=== PATIENT | male | born 1940 | race Two or more races ===

== ENCOUNTER 2018-02-04 03:51 | Inpatient (IN) | payer MEDICARE, MEDICAID ==
[~2018-02-04] VITALS: Ht 167.6 cm; Wt 111.1 kg
[2018-02-04] MEDS ORDERED: ACETAMINOPHEN 325MG TABLET PO STA (04:16)
[2018-02-04] MEDS ORDERED: SODIUM CHLORIDE 0.9% 1000ML BAG (SEPSIS BOLUS) IV ONE (04:30)
[2018-02-04 04:51] LABS: HEMATOCRIT. 47.9 % (42.0-52.0); MEAN CORPUSCULAR HEMOGLOBIN 31.6 pg (28.0-32.0); MEAN CORPUSCULAR VOLUME 94.7 fL (80.0-94.0); MEAN PLATELET VOLUME 9.4 fl (7.4-10.4); PLATELET 184 x1000/uL (130-400); RED BLOOD CELL COUNT 5.06 mill/uL (4.7-6.1); RED CELL DISTRIBUTION WIDTH 13.7 % (11.6-14.6)
[2018-02-04 04:53] LABS: CHLORIDE 102 mEq/L (98-107)
[2018-02-04 04:56] LABS: INR 1.1; PROTHROMBIN TIME 11.8 sec (9.4-11.6)
[2018-02-04 05:27] LABS: CLARITY URINE CLEAR (CLEAR); COLOR URINE YELLOW (YELLOW); KETONES URINE NEGATIVE (NEGATIVE); LEUKOCYTE ESTERASE URINE NEGATIVE (NEGATIVE); NITRITE URINE NEGATIVE (NEGATIVE); OCCULT BLOOD URINE NEGATIVE (NEGATIVE); PROTEIN URINE 2+ (NEGATIVE); SPECIFIC GRAVITY URINE 1.015 (1.005-1.030)
[2018-02-04] MEDS ORDERED: PIPERACILLIN/TAZ 3.375G PREMIX 50 ML IV ONE (05:45)
[2018-02-04] MEDS ORDERED: VANCOMYCIN 1 G PREMIX 200 ML IV ONE (05:45)
[2018-02-04 06:11] LABS: PLATELET ESTIMATE NORMAL
[2018-02-04] MEDS ORDERED: CLONIDINE 0.1MG TABLET PO PRN (09:30)
[2018-02-04] MEDS ORDERED: IPRATROPIUM/ALBUTEROL 0.5-3(2.5)MG/3ML NEB INH PRN (09:30)
[2018-02-04] MEDS ORDERED: ONDANSETRON HCL 4MG/2ML VIAL IV PRN (09:30)
[2018-02-04] MEDS ORDERED: ACETAMINOPHEN 325MG TABLET PO PRN (09:30)
[2018-02-04] MEDS ORDERED: DIPHENHYDRAMINE 50MG/ML VIAL IV PRN (09:30)
[2018-02-04] MEDS ORDERED: ENOXAPARIN 40MG/0.4ML SYR SUBCUT SCH (09:30)
[2018-02-04] MEDS ORDERED: LEVOFLOXACIN 500MG PREMIX 100 ML IV SCH (09:30)
[2018-02-04 11:00] VITALS: BP 105/49
[2018-02-04] MEDS ORDERED: ENOXAPARIN 30MG/0.3ML SYR SUBCUT SCH (11:00)
[2018-02-04 12:00] VITALS: BP 106/58
[2018-02-04] MEDS ORDERED: IPRATROPIUM/ALBUTEROL 0.5-3(2.5)MG/3ML NEB HHN SCH (12:00)
[2018-02-04] MEDS: SODIUM CHLORIDE 0.9% INJ 3ML FLUSH IVF SCH ×2 (13:42→20:59)
[2018-02-04] MEDS: LEVOFLOXACIN 500MG PREMIX 100 ML IV SCH (14:29)
[2018-02-04] MEDS ORDERED: DEXTROSE 50% WATER 50ML SYRINGE IV PRN (15:00)
[2018-02-04] MEDS ORDERED: ZOLPIDEM TARTRATE 5MG TABLET PO PRN (15:00)
[2018-02-04] MEDS ORDERED: MAGNESIUM HYDROXIDE 400MG/5ML 30ML UDC PO PRN (15:00)
[2018-02-04] MEDS ORDERED: MAGNESIUM/ALUMINUM HYDROXIDE/SIMETHICONE 30ML UDC PO PRN (15:00)
[2018-02-04] MEDS ORDERED: DILTIAZEM HCL 5MG/ML 5ML VIAL IV PRN (15:45)
[2018-02-04 16:00] VITALS: BP 104/58
[2018-02-04] MEDS: IPRATROPIUM/ALBUTEROL 0.5-3(2.5)MG/3ML NEB HHN SCH ×2 (16:47→21:30)
[2018-02-04] MEDS ORDERED: APIXABAN 2.5 MG TABLET PO SCH (17:00)
[2018-02-04] MEDS: DILTIAZEM HCL 30MG TABLET PO SCH (17:05)
[2018-02-04] MEDS: BLOOD SUGAR DIAGNOSTIC STRIP TEST SCH ×2 (17:07→20:59)
[2018-02-04] MEDS: APIXABAN 5 MG TABLET PO SCH (17:11)
[2018-02-04] MEDS: INSULIN LISPRO 100 UNITS/ML SUBCUT SCH ×2 (17:12→21:00)
[2018-02-04] MEDS ORDERED: HYDROCODONE/ACETAMINOPHEN 5/325MG TABLET PO PRN (17:30)
[2018-02-04 20:00] VITALS: BP 113/55
[2018-02-04] MEDS: GUAIFENESIN 600MG ER TABLET PO SCH (20:57)
[2018-02-04] MEDS: INSULIN GLARGINE UD 100 UNITS/ML SYR SUBCUT SCH (20:59)
[2018-02-05 00:19] VITALS: BP 98/57
[2018-02-05] MEDS: IPRATROPIUM/ALBUTEROL 0.5-3(2.5)MG/3ML NEB HHN SCH ×4 (01:54→20:49)
[2018-02-05] MEDS: DILTIAZEM HCL 30MG TABLET PO SCH ×4 (05:28→17:21)
[2018-02-05] MEDS: SODIUM CHLORIDE 0.9% INJ 3ML FLUSH IVF SCH ×3 (05:29→20:58)
[2018-02-05] MEDS: BLOOD SUGAR DIAGNOSTIC STRIP TEST SCH ×4 (05:29→20:56)
[2018-02-05 05:55] VITALS: BP 107/57
[2018-02-05] MEDS: INSULIN LISPRO 100 UNITS/ML SUBCUT SCH ×4 (06:14→20:57)
[2018-02-05 07:38] LABS: BASOPHILS % 0.2 % (0.0-2.0); EOSINOPHILS % 0.3 % (0.0-5.0); HEMOGLOBIN. 13.6 g/dL (14.0-18.0); LYMPHOCYTES % 7.8 % (20.0-50.0); MEAN CORPUSCULAR HEMOGLOBIN 31.9 pg (28.0-32.0); MEAN CORPUSCULAR VOLUME 96.6 fL (80.0-94.0); MEAN PLATELET VOLUME 9.9 fl (7.4-10.4); NEUTROPHILS % 85.7 % (40.0-76.0); PLATELET 161 x1000/uL (130-400); RED BLOOD CELL COUNT 4.25 mill/uL (4.7-6.1); RED CELL DISTRIBUTION WIDTH 14.1 % (11.6-14.6)
[2018-02-05 08:52] VITALS: BP 121/59
[2018-02-05] MEDS: APIXABAN 5 MG TABLET PO SCH ×2 (09:15→17:22)
[2018-02-05] MEDS: GUAIFENESIN 600MG ER TABLET PO SCH ×2 (09:15→20:56)
[2018-02-05] MEDS ORDERED: FUROSEMIDE 40MG/4ML VIAL IVP SCH (10:30)
[2018-02-05] MEDS: LEVOFLOXACIN 500MG PREMIX 100 ML IV SCH (10:31)
[2018-02-05 12:28] VITALS: BP 125/73
[2018-02-05 16:13] VITALS: BP 116/45
[2018-02-05 20:00] VITALS: BP 132/63
[2018-02-05] MEDS: INSULIN GLARGINE UD 100 UNITS/ML SYR SUBCUT SCH (20:57)
[2018-02-06] VITALS: BP 135/54
[2018-02-06] MEDS: DILTIAZEM HCL 30MG TABLET PO SCH ×4 (01:11→17:12)
[2018-02-06] MEDS: GUAIFENESIN 200MG/10ML SUGAR FREE UDC PO PRN ×2 (01:59→06:03)
[2018-02-06] MEDS: IPRATROPIUM/ALBUTEROL 0.5-3(2.5)MG/3ML NEB HHN SCH ×4 (02:27→19:50)
[2018-02-06 04:00] VITALS: BP 129/58
[2018-02-06] MEDS: BLOOD SUGAR DIAGNOSTIC STRIP TEST SCH ×4 (05:57→20:55)
[2018-02-06] MEDS: SODIUM CHLORIDE 0.9% INJ 3ML FLUSH IVF SCH ×3 (06:06→20:56)
[2018-02-06] MEDS: INSULIN LISPRO 100 UNITS/ML SUBCUT SCH ×4 (06:06→21:06)
[2018-02-06 07:19] LABS: BASOPHILS % 0.5 % (0.0-2.0); HEMATOCRIT. 42.6 % (42.0-52.0); HEMOGLOBIN. 14.2 g/dL (14.0-18.0); LYMPHOCYTES % 7.8 % (20.0-50.0); MEAN CORPUSCULAR HEMOGLOBIN 31.8 pg (28.0-32.0); MEAN CORPUSCULAR VOLUME 95.4 fL (80.0-94.0); MEAN PLATELET VOLUME 9.5 fl (7.4-10.4); MONOCYTES % 7.1 % (2.0-8.0); NEUTROPHILS % 83.6 % (40.0-76.0); PLATELET 169 x1000/uL (130-400); RED BLOOD CELL COUNT 4.46 mill/uL (4.7-6.1); RED CELL DISTRIBUTION WIDTH 14.1 % (11.6-14.6)
[2018-02-06 07:34] LABS: CHLORIDE 102 mEq/L (98-107)
[2018-02-06 08:00] VITALS: BP 124/59
[2018-02-06] MEDS: APIXABAN 5 MG TABLET PO SCH ×2 (09:13→17:12)
[2018-02-06] MEDS: GUAIFENESIN 600MG ER TABLET PO SCH ×2 (09:14→20:55)
[2018-02-06] MEDS: LEVOFLOXACIN 500MG PREMIX 100 ML IV SCH (11:27)
[2018-02-06] MEDS ORDERED: SODIUM CHLORIDE 0.9% 500 ML IV NR ×2 (12:05→12:15)
[2018-02-06 12:07] VITALS: BP 128/58
[2018-02-06] MEDS ORDERED: ATENOLOL 50 MG TABLET PO SCH (12:15)
[2018-02-06] MEDS ORDERED: FUROSEMIDE 40MG/4ML VIAL IVP NR (14:12)
[2018-02-06 16:33] VITALS: BP 131/56
[2018-02-06 20:00] VITALS: BP 104/54
[2018-02-06] MEDS: INSULIN GLARGINE UD 100 UNITS/ML SYR SUBCUT SCH (21:07)
[2018-02-07] VITALS: BP 138/56
[2018-02-07] MEDS: DILTIAZEM HCL 30MG TABLET PO SCH ×2 (00:31→06:20)
[2018-02-07] MEDS: IPRATROPIUM/ALBUTEROL 0.5-3(2.5)MG/3ML NEB HHN SCH ×2 (01:42→08:39)
[2018-02-07 04:00] VITALS: BP 138/69
[2018-02-07] MEDS: SODIUM CHLORIDE 0.9% INJ 3ML FLUSH IVF SCH (05:59)
[2018-02-07] MEDS: BLOOD SUGAR DIAGNOSTIC STRIP TEST SCH ×2 (06:20→12:44)
[2018-02-07] MEDS: INSULIN LISPRO 100 UNITS/ML SUBCUT SCH ×2 (06:20→12:44)
[2018-02-07 08:00] VITALS: BP 127/64
[2018-02-07] MEDS: APIXABAN 5 MG TABLET PO SCH (08:00)
[2018-02-07] MEDS: GUAIFENESIN 600MG ER TABLET PO SCH (08:00)
[2018-02-07] MEDS: LEVOFLOXACIN 500MG PREMIX 100 ML IV SCH (08:01)
[2018-02-07 08:06] LABS: BASOPHILS % 0.3 % (0.0-2.0); EOSINOPHILS % 2.1 % (0.0-5.0); HEMATOCRIT. 42.8 % (42.0-52.0); HEMOGLOBIN. 14.4 g/dL (14.0-18.0); LYMPHOCYTES % 11.5 % (20.0-50.0); MEAN CORPUSCULAR HEMOGLOBIN 33.1 pg (28.0-32.0); MEAN CORPUSCULAR VOLUME 98.1 fL (80.0-94.0); MEAN PLATELET VOLUME 9.6 fl (7.4-10.4); MONOCYTES % 7.6 % (2.0-8.0); NEUTROPHILS % 78.5 % (40.0-76.0); PLATELET 199 x1000/uL (130-400); RED BLOOD CELL COUNT 4.36 mill/uL (4.7-6.1); RED CELL DISTRIBUTION WIDTH 13.8 % (11.6-14.6)
[2018-02-07 10:16] VITALS: BP 127/64
[2018-02-07 12:00] VITALS: BP 124/63
== END 2018-02-07 13:55 | disposition home or self-care (01) | DRG 871 ==
LOC: ER 03:51 → 8WST 05:57 → EDBEDREQ 06:05 → EDBEDREQSVC 06:27 → ENRESERV 09:00
PROVIDERS: ADMIT Internal Medicine; ATTEND Internal Medicine
DX: A41.9 Sepsis, unspecified organism (principal); J96.00 Acute respiratory failure, unspecified whether with hypoxia or hypercapnia; I50.33 Acute on chronic diastolic (congestive) heart failure; J18.1 Lobar pneumonia, unspecified organism; E87.2 Acidosis; I48.0 Paroxysmal atrial fibrillation; I11.0 Hypertensive heart disease with heart failure; Z99.81 Dependence on supplemental oxygen; E11.9 Type 2 diabetes mellitus without complications; D64.9 Anemia, unspecified; E44.1 Mild protein-calorie malnutrition; E66.01 Morbid (severe) obesity due to excess calories; E78.5 Hyperlipidemia, unspecified; E78.00 Pure hypercholesterolemia, unspecified; I25.10 Atherosclerotic heart disease of native coronary artery without angina pectoris; K57.90 Diverticulosis of intestine, part unspecified, without perforation or abscess without bleeding; I08.0 Rheumatic disorders of both mitral and aortic valves; J44.9 Chronic obstructive pulmonary disease, unspecified; N40.0 Benign prostatic hyperplasia without lower urinary tract symptoms; Z82.49 Family history of ischemic heart disease and other diseases of the circulatory system; Z79.01 Long term (current) use of anticoagulants; Z83.3 Family history of diabetes mellitus; Z87.891 Personal history of nicotine dependence; Z90.49 Acquired absence of other specified parts of digestive tract; Z79.899 Other long term (current) drug therapy; Z68.39 Body mass index [BMI] 39.0-39.9, adult
CPT/HCPCS: 36415; 71045; 74176; 80048; 80053; 80061; 81003; 82962; 83036; 83605; 83735; 83880; 84484; 85025; 85610; 87040; 87086; 93005; 93306; 93970; 94640; 96365; 96366; 96368; 96375; 99291; J1650; J1815; J1940; J1956; J2543; J3370; J7030; J7040; J7620

== ENCOUNTER 2019-06-23 06:10 | Inpatient (IN) | payer MEDICARE, MEDICAID ==
[~2019-06-23] VITALS: Ht 167.6 cm; Wt 111.2 kg
[~2019-06-23 06:10] MED LIST: ASPI-1393 PO; ATOR10TA PO; CARV6.2548 PO; FURO-152 PO; TAMS0.4C31 PO; TIOT18CA3 IH
[2019-06-23] MEDS ORDERED: TIOT18CA3 INH (07:57)
[2019-06-23] MEDS ORDERED: APIX5TAB PO (07:57)
[2019-06-23] MEDS ORDERED: MULT-1146 MT (07:57)
[2019-06-23] MEDS ORDERED: PROPOFOL 10MG/ML 100ML 100 ML IV ONE (07:57)
[2019-06-23 07:59] LABS: HEMATOCRIT 48.4 % (42.0-52.0); HEMOGLOBIN 15.7 g/dL (14.0-18.0); INR 1.1; MEAN CORPUSCULAR HEMOGLOBIN 31.2 pg (28.0-32.0); MEAN CORPUSCULAR VOLUME 95.9 fL (80.0-94.0); PARTIAL THROMBOPLASTIN TIME 29.2 sec (23.4-31.0); PLATELET 173 x1000/uL (130-400); PROTHROMBIN TIME 11.4 sec (9.6-11.0); RED BLOOD CELL COUNT 5.04 mill/uL (4.7-6.1); RED CELL DISTRIBUTION WIDTH 14.2 % (11.6-14.6)
[2019-06-23] MEDS ORDERED: CEFAZOLIN 1000MG PREMIX 50 ML IV ONE ×2 (08:30→08:45)
[2019-06-23] MEDS ORDERED: GENTAMICIN SULF 40MG/ML 2ML VIAL ONE (08:34)
[2019-06-23] MEDS ORDERED: GENTAMICIN/NS IRRIGATION 500 ML IR ONE (08:35)
[2019-06-23] MEDS ORDERED: IOHEXOL-300 100 ML BOTTLE ONE (08:35)
[2019-06-23] MEDS ORDERED: LIDOCAINE HCL 1% 20ML VIAL (Pyxis) INJ ONE (09:17)
[2019-06-23] MEDS ORDERED: HYDROCODONE/ACETAMINOPHEN 5/325MG TABLET PO PRN (11:00)
[2019-06-23 15:43] VITALS: BP 125/67
[2019-06-23 16:00] VITALS: BP 119/49
[2019-06-23] MEDS: CARVEDILOL 6.25 MG TABLET PO SCH (17:12)
[2019-06-23 18:00] VITALS: BP 116/68
[2019-06-23 20:00] VITALS: BP 136/67
[2019-06-23 22:00] VITALS: BP 119/60
[2019-06-24] VITALS (10 sets, daily range): BP systolic 116–139; BP diastolic 62–73
[2019-06-24 06:04] LABS: BASOPHILS % 0.3 % (0.0-2.0); EOSINOPHILS % 3.6 % (0.0-5.0); HEMATOCRIT. 47.3 % (42.0-52.0); HEMOGLOBIN. 15.8 g/dL (14.0-18.0); LYMPHOCYTES % 12.9 % (20.0-50.0); MEAN CORPUSCULAR HEMOGLOBIN 32.3 pg (28.0-32.0); MEAN CORPUSCULAR VOLUME 96.6 fL (80.0-94.0); MEAN PLATELET VOLUME 9.9 fl (7.4-10.4); MONOCYTES % 10.1 % (2.0-8.0); NEUTROPHILS % 73.1 % (40.0-76.0); PLATELET 175 x1000/uL (130-400); RED CELL DISTRIBUTION WIDTH 14.3 % (11.6-14.6)
[2019-06-24 06:18] LABS: CHLORIDE 103 mEq/L (98-107)
[2019-06-24 06:42] LABS: LDL CHOLESTEROL 58 mg/dL (5-100)
[2019-06-24 06:44] LABS: HDL CHOLESTEROL 41 mg/dL (40-59)
[2019-06-24] MEDS: CARVEDILOL 6.25 MG TABLET PO SCH ×2 (08:33→17:18)
[2019-06-24] MEDS ORDERED: FUROSEMIDE 20MG TABLET PO SCH (09:00)
[2019-06-24] MEDS ORDERED: TAMSULOSIN HCL 0.4MG SR CAPSULE PO SCH (09:00)
[2019-06-24] MEDS ORDERED: ATORVASTATIN CALCIUM 10MG TABLET PO SCH (09:00)
[2019-06-24] MEDS ORDERED: ASPIRIN 81MG EC TABLET PO SCH (09:00)
[2019-06-24] MEDS ORDERED: APIXABAN 5 MG TABLET PO SCH (09:00)
== END 2019-06-24 17:38 | disposition home or self-care (01) | DRG 244 ==
LOC: CCL 06:10 → 3WST 06:11
PROVIDERS: ADMIT Internal Medicine Clinical Cardiac Electrophysiology; ATTEND Internal Medicine Clinical Cardiac Electrophysiology
PROC: 0JH604Z Insertion of Pacemaker, Single Chamber into Chest Subcutaneous Tissue and Fascia, Open Approach (ICD-10-PCS; principal; 2019-06-23)
PROC: 02HK3JZ Insertion of Pacemaker Lead into Right Ventricle, Percutaneous Approach (ICD-10-PCS; 2019-06-23)
PROC: B5171ZZ Fluoroscopy of Left Subclavian Vein using Low Osmolar Contrast (ICD-10-PCS; 2019-06-23)
DX: I49.5 Sick sinus syndrome (principal); E11.9 Type 2 diabetes mellitus without complications; E66.9 Obesity, unspecified; E78.00 Pure hypercholesterolemia, unspecified; E78.5 Hyperlipidemia, unspecified; E03.9 Hypothyroidism, unspecified; I11.0 Hypertensive heart disease with heart failure; I25.10 Atherosclerotic heart disease of native coronary artery without angina pectoris; N40.0 Benign prostatic hyperplasia without lower urinary tract symptoms; I48.2 Chronic atrial fibrillation; I50.9 Heart failure, unspecified; J44.9 Chronic obstructive pulmonary disease, unspecified; Z82.49 Family history of ischemic heart disease and other diseases of the circulatory system; Z79.4 Long term (current) use of insulin; Z87.891 Personal history of nicotine dependence; Z68.39 Body mass index [BMI] 39.0-39.9, adult; Z86.73 Personal history of transient ischemic attack (TIA), and cerebral infarction without residual deficits; Z71.6 Tobacco abuse counseling
CPT/HCPCS: 33207; 36415; 71045; 75820; 80048; 80061; 82962; 83036; 83735; 85027; 93005; C1786; C1893; C1898; J0690; J1580; J2704; J3490; Q9967